=== PATIENT | female | born 1935 | race Caucasian/White ===

== ENCOUNTER 2017-10-21 12:55 | Inpatient (IN) | payer OTHER, MEDICAID, MEDICARE ==
[~2017-10-21] VITALS: Ht 162.6 cm; Wt 98.0 kg
[~2017-10-21 12:55] MED LIST: AMLO2.5T PO; ATEN-102 PO; BENA25TA5 PO; CALTCHW4 PO; HYDR-3133 PO; LOVA20TA PO; MEDR4PAK3 PO; OMEG100037 PO; VITA10002 PO
[2017-10-21 13:24] VITALS: BP 195/98; PULSE 86; RESP 18; O2SAT 97
[2017-10-21] MEDS ORDERED: CALTCHW5 PO (13:29)
[2017-10-21] MEDS ORDERED: ATEN50TA PO (13:29)
[2017-10-21] MEDS ORDERED: CYAN1TAB24 (13:29)
[2017-10-21] MEDS ORDERED: FISHCAP4 PO (13:29)
[2017-10-21] MEDS ORDERED: AMLO2.5T PO (13:29)
[2017-10-21] MEDS ORDERED: LOVA20TA PO (13:29)
[2017-10-21] MEDS ORDERED: SODIUM CHLORIDE 0.9% FLUSH 10 ML FLUSH IVF PRN ×2 (13:30)
--- NOTE | 2017-10-21 13:38 | PD ---
HPI Chief Complaint: Fall Time Seen by Provider: 13:17 Travel History International Travel<30 days: No Contact w/Intl Traveler<30days: No Traveled to known affect area: No History of Present Illness HPI 81-year-old female states she was getting out of bed from a nap when she got tripped up trying to get back in her scooter and fell. She states she lives at home with her sister. She states she mainly gets around in her scooter. She states she is now having pain to the back of her head and her left knee. She denies any other concurrent complaints but history is limited as patient is having difficulty secondary to pain she states. Pain is worse with movement. She denies other modifying factors. She presents by ambulance. [facility], LAT[facility] Past Medical History Arthritis: Yes High Cholesterol: Yes Diabetes: No Hypertension: Yes Tetanus Vaccination: > 5 Years Influenza Vaccination: Yes ?: Not Menopausal: Yes Past Surgical History Endocrine Surgery: Yes (partcial thyroid removed r/t cyst) Tonsillectomy: Yes Social History Alcohol Use: No Tobacco Use: No (quit in 1974) Substance Use: No Allergies-Medications (Allergen,Severity, Reaction): Coded Allergies: red dye (Unverified Allergy, Severe, Anaphylaxis, 06/20/17) Reported Meds & Prescriptions Reported Meds & Active Scripts Active Reported Caltrate 600+D Chew (Calcium Carbonate-Vitamin D Chew) 600-400 Mg-Unit Chew 1 Tab PO BID Fish Oil + D3 (Fish Oil-Cholecalciferol) 1,200-1,000 Mg-Unit Cap 1 Cap PO DAILY Lovastatin 20 Mg Tab 20 Mg PO HS B12 (Cyanocobalamin) 1,000 Mcg Tab Amlodipine (Amlodipine Besylate) 2.5 Mg Tab 2.5 Mg PO DAILY Atenolol 50 Mg Tab 50 Mg PO BID Review of Systems ROS Limitations: Poor Historian Physical Exam Narrative General: 81 y/o patient who appears uncomfortable Skin: warm and dry Eyes: pupils are equal ENT: no septal hematoma NECK: no pain with palpation in midline Cardiovascular: Regular rate and rhythm Respiratory: normal respiratory effort noted, clear to auscultation bilaterally Abdomen: soft, nontender, nondistended Back: No step-offs, midline spine nontender with logroll Extremities: Pain with palpation of left knee, no lacerations over, neurovascularly intact, no pain with palpation of other joints Neuro: awake, moves all extremities, clear speech Data Data Last Documented VS Vital Signs Date Time Temp Pulse Resp B/P (MAP) Pulse Ox O2 Delivery O2 Flow Rate FiO2 10/21/17 13:24 86 18 195/98 (130) 97 Room Air Orders Orders Complete Blood Count With Diff (10/21/17 13:23) Comprehensive Metabolic Panel (10/21/17 13:23) Prothrombin Time / Inr (Pt) (10/21/17 13:23) Act Partial Throm Time (Ptt) (10/21/17 13:23) Chest, Single Ap (10/21/17 13:23) Pelvis, Ap Only (Routine) (10/21/17 13:23) Iv Access Insert/Monitor (10/21/17 13:23) Oximetry (10/21/17 13:23) Ecg Monitoring (10/21/17 13:23) Sodium Chloride 0.9% Flush (Ns Flush) (10/21/17 13:30) Ct Brain W/O Iv Contrast(Rout) (10/21/17 13:23) Ct Cerv Spine W/O Contrast (10/21/17 13:23) Sodium Chloride 0.9% Flush (Ns Flush) (10/21/17 13:30) Knee, Complete (4vws) (10/21/17 ) Morphine Inj (Morphine Inj) (10/21/17 13:45) Atenolol (Tenormin) (10/21/17 15:30) Apply Cervical Collar (10/21/17 15:25) Consult Neurosurgery (10/21/17 ) (Hub Use Only)Inp Phy Cons/Ref (10/21/17 ) Amlodipine (Norvasc) (10/22/17 09:00) Atenolol (Tenormin) (10/21/17 21:00) Pravastatin (Pravachol) (10/21/17 21:00) Calcium-Vit D 250-125 Mg (Oscal-D 250-12 (10/21/17 21:00) Admit To Inpatient (10/21/17 ) Vital Signs (Adult) Q4H (10/21/17 16:05) Activity Oob With Assistance (10/21/17 16:05) Intake + Output KYLAH.QSHIFT (10/21/17 16:05) Sodium Chloride 0.9% Flush (Ns Flush) (10/21/17 16:15) Sodium Chloride 0.9% Flush (Ns Flush) (10/21/17 21:00) Acetaminophen (Tylenol) (10/21/17 16:15) Basic Metabolic Panel (Bmp) (10/22/17 06:00) Complete Blood Count With Diff (10/22/17 06:00) Pt Request For Service (10/21/17 16:05) Ot Request For Service (10/21/17 16:05) Case Management Consult (10/21/17 16:05) Enoxaparin Inj (Lovenox Inj) (10/21/17 17:00) Scd Bilateral/Knee High KYLAH.BID (10/21/17 16:05) Jamir Bilateral/Knee High KYLAH.QSHIFT (10/21/17 16:05) Naloxone Inj (Narcan Inj) (10/21/17 16:15) Docusate Sodium-Senna (Rita-Colace) (10/21/17 21:00) Magnesium Hydroxide Liq (Milk Of Magnesi (10/21/17 16:15) Sennosides (Senokot) (10/21/17 16:15) Bisacodyl Supp (Dulcolax Supp) (10/21/17 16:15) Lactulose Liq (Lactulose Liq) (10/21/17 16:15) Inpatient Certification (10/21/17 ) Pill Splitter (Pill Splitter) (10/21/17 16:15) Admit Order (Ed Use Only) (10/21/17 16:04) Diet Npo (10/21/17 Dinner) Labs Laboratory Tests Test 10/21/17 13:40 White Blood Count 10.6 TH/MM3 Red Blood Count 4.56 MIL/MM3 Hemoglobin 13.5 GM/DL Hematocrit 39.7 % Mean Corpuscular Volume 87.0 FL Mean Corpuscular Hemoglobin 29.5 PG Mean Corpuscular Hemoglobin Concent 33.9 % Red Cell Distribution Width 14.5 % Platelet Count 302 TH/MM3 Mean Platelet Volume 8.1 FL Neutrophils (%) (Auto) 82.5 % Lymphocytes (%) (Auto) 10.2 % Monocytes (%) (Auto) 5.8 % Eosinophils (%) (Auto) 1.0 % Basophils (%) (Auto) 0.5 % Neutrophils # (Auto) 8.7 TH/MM3 Lymphocytes # (Auto) 1.1 TH/MM3 Monocytes # (Auto) 0.6 TH/MM3 Eosinophils # (Auto) 0.1 TH/MM3 Basophils # (Auto) 0.1 TH/MM3 CBC Comment DIFF FINAL Differential Comment Prothrombin Time 10.1 SEC Prothromb Time International Ratio 1.0 RATIO Activated Partial Thromboplast Time 20.8 SEC Blood Urea Nitrogen 10 MG/DL Creatinine 0.76 MG/DL Random Glucose 114 MG/DL Total Protein 7.5 GM/DL Albumin 4.0 GM/DL Calcium Level 9.1 MG/DL Alkaline Phosphatase 126 U/L Aspartate Amino Transf (AST/SGOT) 28 U/L Alanine Aminotransferase (ALT/SGPT) 36 U/L Total Bilirubin 0.4 MG/DL Sodium Level 134 MEQ/L Potassium Level 3.9 MEQ/L Chloride Level 100 MEQ/L Carbon Dioxide Level 28.0 MEQ/L Anion Gap 6 MEQ/L Estimat Glomerular Filtration Rate 73 ML/MIN MDM Medical Decision Making Medical Screen Exam Complete: Yes Emergency Medical Condition: Yes Medical Record Reviewed: Yes (pmh confirmed) Interpretation(s) CBC & BMP Diagram 10/21/17 13:40 Total Protein 7.5, Albumin 4.0, Calcium Level 9.1, Alkaline Phosphatase 126 H, Aspartate Amino Transf (AST/SGOT) 28, Alanine Aminotransferase (ALT/SGPT) 36, Total Bilirubin 0.4 Last 24 hours Impressions Pelvis X-Ray 10/21/17 1323 Signed Impressions: Service Date/Time: Saturday, October 21, 2017 14:11 - CONCLUSION: 1. No acute fracture or dislocation. 2. 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 Enrique Torres MD Head CT 10/21/17 1323 Signed Impressions: Service Date/Time: Saturday, October 21, 2017 14:40 - CONCLUSION: 1. Senescent changes with moderate small vessel periventricular white matter ischemic demyelination. 2. No acute intracranial abnormality. Enrique Torres MD Chest X-Ray 10/21/17 1323 Signed Impressions: Service Date/Time: Saturday, October 21, 2017 14:15 - CONCLUSION: 1. Focal elevation of the medial right hemidiaphragm. 2. Otherwise, negative portable chest status post trauma. Enrique Torres MD Cervical Spine CT 10/21/17 1323 Signed Impressions: Service Date/Time: Saturday, October 21, 2017 14:40 - CONCLUSION: 1. Fracture of the left C2 pedicle with questionable extension along the anterolateral left C2 body to the base of the dens. Suspect the lucency extending to the base of the dens is related to old injury or represents a venous channel. This can be better evaluated with MRI examination if clinically indicated. 2. Multilevel degenerative spondylosis of the cervical spine most prominently at C3-4 and C5- 6 with multilevel facet arthropathy. Enrique Torres MD Knee X-Ray 10/21/17 0000 Signed Impressions: Service Date/Time: Saturday, October 21, 2017 14:18 - CONCLUSION: 1. No acute fracture or dislocation. 2. Mild tricompartmental degenerative osteoarthritis. Enrique Torres MD Differential Diagnosis Fracture, strain, sprain Narrative Course Will check blood work, trauma imaging and dose with morphine and reevaluate Trauma imaging shows fracture of left c2 pedicle with possible extension, patient's [facility] Amb[facility] collar was changed to a Tasia collar and will discuss with neurosurgery patient updated, son also now at bedside in addition to sister and they are to admit in the hospital for further care Physician Communication Physician Communication dr pablo will see patient dr jimenze agrees to admit Diagnosis Primary Impression: C2 cervical fracture Qualified Codes: S12.101A - Unspecified nondisplaced fracture of second cervical vertebra, initial encounter for closed fracture Additional Impression: Fall Qualified Codes: W19.XXXA - Unspecified fall, initial encounter Admitting Information Admitting Physician Requests: Admit Carlie Cruz MD Oct 21, 2017 13:38
[2017-10-21] MEDS ORDERED: MORPHINE SULFATE 4 MG/ML INJ IV PUSH ONE (13:45)
[2017-10-21 14:12] LABS: AUTOMATED NEUTROPHIL # 8.7 TH/MM3 (1.8-7.7); BASOPHIL # 0.1 TH/MM3 (0-0.2); BASOPHIL % 0.5 % (0.0-2.0); EOSINOPHIL # 0.1 TH/MM3 (0-0.4); HEMATOCRIT 39.7 % (35.0-46.0); HEMO FLAGS DIFF FINAL; LYMPH % 10.2 % (9.0-44.0); LYMPHOCYTE # 1.1 TH/MM3 (1.0-4.8); MEAN CORPUSCULAR HEMOGLOBIN 29.5 PG (27.0-34.0); MEAN CORPUSCULAR HGB CONC 33.9 % (32.0-36.0); MONO % 5.8 % (0.0-8.0); NEUT % 82.5 % (16.0-70.0); PLATELET COUNT 302 TH/MM3 (150-450); RED BLOOD COUNT 4.56 MIL/MM3 (4.00-5.30); RED CELL DISTRIBUTION WIDTH 14.5 % (11.6-17.2); WHITE BLOOD COUNT 10.6 TH/MM3 (4.0-11.0)
--- NOTE | 2017-10-21 14:24 | RADRPT ---
EXAM DATE/TIME: 10/21/2017 14:15 [facility] COMPARISON: No previous studies available for comparison. INDICATIONS : Trauma. Patient fell today. MEDICAL HISTORY : None. SURGICAL HISTORY : None. ENCOUNTER: Initial ACUITY: 1 day PAIN SCORE: 0/10 LOCATION: chest FINDINGS: Focal medial eventration of the right hemidiaphragm. No significant focal pleural or pelvic opacities . Cardiomediastinal contours are within normal limits. No significant pneumothorax. Osseous structure s are grossly intact. CONCLUSION: 1. Focal elevation of the medial right hemidiaphragm. 2. Otherwise, negative portable chest status post trauma. Enrique Torres MD on October 21, 2017 at 14:21 Board Certified Radiologist. This report was verified electronically.
--- NOTE | 2017-10-21 14:27 | RADRPT ---
EXAM DATE/TIME: 10/21/2017 14:11 [facility] COMPARISON: No previous studies available for comparison. INDICATIONS : Patient fell today and complains of pelvic pain. MEDICAL HISTORY : None. SURGICAL HISTORY : None. ENCOUNTER: Initial ACUITY: 1 day PAIN SCORE: 3/10 LOCATION: Pelvis FINDINGS: A single frontal view of the pelvis demonstrates no evidence of fracture. The bony pelvic ring is in tact. There is severe osteoarthritis of the left hip with [id number] articulation. There is moderat e to severe osteoarthritis of the right hip. Sacral arches are maintained. Soft tissues are grossly u nremarkable. CONCLUSION: 1. No acute fracture or dislocation. 2. 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 Enrique Torres MD on October 21, 2017 at 14:23 Board Certified Radiologist. This report was verified electronically.
[2017-10-21 14:29] LABS: APTT (PATIENT) 20.8 SEC (24.3-30.1); PROTHROMBIN TIME - PATIENT 10.1 SEC (9.8-11.6)
[2017-10-21 14:30] LABS: ALT (GPT) 36 U/L (10-53); ANION GAP 6 MEQ/L (5-15); AST (GOT) 28 U/L (15-37); BLOOD UREA NITROGEN 10 MG/DL (7-18); CHLORIDE 100 MEQ/L (98-107); GLOMERULAR FILTRATION RATE 73 ML/MIN (>89); POTASSIUM 3.9 MEQ/L (3.5-5.1); SODIUM (NA) 134 MEQ/L (136-145)
[2017-10-21 14:31] LABS: ALKALINE PHOSPHATASE 126 U/L (45-117); TOTAL BILIRUBIN ADULT 0.4 MG/DL (0.2-1.0)
--- NOTE | 2017-10-21 15:02 | RADRPT ---
EXAM DATE/TIME: 10/21/2017 14:18 [facility] COMPARISON: No previous studies available for comparison. INDICATIONS : Patient fell and complains of left knee pain. MEDICAL HISTORY : None. SURGICAL HISTORY : None. ENCOUNTER: Initial ACUITY: 1 day PAIN SCORE: 5/10 LOCATION: Left Knee FINDINGS: Four view examination of the left knee demonstrates no evidence of fracture or dislocation. Bony min eralization is normal. The articular surfaces are intact. Mild tricompartmental degenerative change. The suprapatellar soft tissues have a normal configuration. CONCLUSION: 1. No acute fracture or dislocation. 2. Mild tricompartmental degenerative osteoarthritis. Enrique Torres MD on October 21, 2017 at 14:59 Board Certified Radiologist. This report was verified electronically.
--- NOTE | 2017-10-21 15:04 | RADRPT ---
EXAM DATE/TIME: 10/21/2017 14:40 [facility] COMPARISON: No previous studies available for comparison. INDICATIONS : Trauma, fall today. RADIATION DOSE: 56.35 CTDIvol (mGy) MEDICAL HISTORY : Hypertension. SURGICAL HISTORY : Thyroidectomy. ENCOUNTER: Initial ACUITY: 1 day PAIN SCALE: 5/10 LOCATION: Bilateral head TECHNIQUE: Multiple contiguous axial images were obtained of the head. Using automated exposure control and adj ustment of the mA and/or kV according to patient size, radiation dose was kept as low as reasonably a chievable to obtain optimal diagnostic quality images. DICOM format image data is available electro nically for review and comparison. FINDINGS: CEREBRUM: Moderate diffuse cerebral volume loss. Moderate periventricular white matter hypodensities. The ventr icles are normal for degree of atrophy. No evidence of midline shift, mass lesion, hemorrhage or acu te infarction. No extra-axial fluid collections are seen. POSTERIOR FOSSA: The cerebellum and brainstem are intact. The 4th ventricle is midline. The cerebellopontine angle i s unremarkable. EXTRACRANIAL: The visualized portion of the orbits is intact. SKULL: The calvaria is intact. No evidence of skull fracture. CONCLUSION: 1. Senescent changes with moderate small vessel periventricular white matter ischemic demyelination. 2. No acute intracranial abnormality. Enrique Torres MD on October 21, 2017 at 15:00 Board Certified Radiologist. This report was verified electronically.
--- NOTE | 2017-10-21 15:23 | RADRPT ---
EXAM DATE/TIME: 10/21/2017 14:40 [facility] COMPARISON: No previous studies available for comparison. INDICATIONS : Trauma, fall today. RADIATION DOSE: 41.1 CTDIvol (mGy) ; Patient body habitus MEDICAL HISTORY : Hypertension. SURGICAL HISTORY : Thyroidectomy. ENCOUNTER: Initial ACUITY: 1 day PAIN SCALE: 6/10 LOCATION: Bilateral neck TECHNIQUE: Volumetric scanning of the cervical spine was performed. Multiplanar reconstructions in the sagittal, coronal and oblique axial planes were performed. Using automated exposure control and adjustment o f the mA and/or kV according to patient size, radiation dose was kept as low as reasonably achievable to obtain optimal diagnostic quality images. DICOM format image data is available electronically f or review and comparison. FINDINGS: There is a lucency extending from the base of the dens posteriorly to the left C2 pedicle. Portions o f the lucency near the base of the dens appear corticated and therefore may reflect an old injury or venous channel. Vertebral body heights are otherwise maintained. There is exaggerated cervical lordos is. Sagittal alignment is maintained. There is a normal C1-2 relationship. Facets are normally aligne d. There is no significant prevertebral soft tissue hematoma. Multilevel degenerative spondylosis wit h disc space narrowing and posterior disc osteophyte complex most prominently at C3-4 and C5-6. Multi level facet arthropathy. No significant cervical adenopathy or gross mass. The thyroid appears unrema rkable. Visualized lung apices are clear without pneumothorax. CONCLUSION: 1. Fracture of the left C2 pedicle with questionable extension along the anterolateral left C2 body t o the base of the dens. Suspect the lucency extending to the base of the dens is related to old injur y or represents a venous channel. This can be better evaluated with MRI examination if clinically ind icated. 2. Multilevel degenerative spondylosis of the cervical spine most prominently at C3-4 and C5-6 with m ultilevel facet arthropathy. Enrique Torres MD on October 21, 2017 at 15:11 Board Certified Radiologist. This report was verified electronically.
[2017-10-21] MEDS ORDERED: ATENOLOL 50 MG TAB PO ONE (15:30)
[2017-10-21] MEDS ORDERED: PILL SPLITTER OTHER PRN (16:15)
[2017-10-21] MEDS ORDERED: SODIUM CHLORIDE 0.9% FLUSH 10 ML FLUSH IV FLUSH PRN (16:15)
[2017-10-21] MEDS ORDERED: MAGNESIUM HYDROXIDE SUSP 30 ML CUP PO PRN (16:15)
[2017-10-21] MEDS ORDERED: LACTULOSE SYRUP 20 GM/30 ML CUP PO PRN (16:15)
[2017-10-21] MEDS ORDERED: SENNOSIDES 8.6 MG TAB PO PRN (16:15)
[2017-10-21] MEDS ORDERED: NALOXONE HCL 0.4 MG/ML AMP IV PUSH PRN (16:15)
[2017-10-21] MEDS ORDERED: BISACODYL 10 MG SUPP RECTAL PRN (16:15)
--- NOTE | 2017-10-21 16:19 | HHI.HP ---
HPI Service [facility] Hospitalists Primary Care Physician Kush Myers M.D. Admission Diagnosis fracture of left C2 pedicle, fall Diagnoses: Chief Complaint: Neck pain s/p fall Travel History International Travel<30 Days: No Contact w/Intl Traveler <30 Da: No Traveled to Known Affected Are: No History of Present Illness Written by Bessie Palma, acting as scribe for Dr. Tate on 10/21/17 at 16: 12. This is a 81yo female with a PMHX significant for HTN, HLD and OA with chronic knee pain who presents to [facility] ED with complaints of neck pain s/p fall. Patient states her left leg got caught up in her covers as she was getting out of bed and she lost her balance and fell hitting her head on the bedside toilet. Patient uses a scooter for mobilization primarily and has done so for the past 3 to 4 years. She has a history of neck injury in the 1970s and also reports an involuntary head shake for many years. She is complaining of left knee pain. In the ED, CT of the cervical spine was obtained revealing fracture of the left C2 pedicle with questionable extension along the anterolateral left C2 body to the base of the dens. Neurosurgery was contacted by the ED physician who recommended admission and will see the patient in consultation. Review of Systems Except as stated in HPI: all other systems reviewed are Neg Past Family Social History Past Medical History Hypertension Dyslipidemia Osteoarthritis Chronic bilateral knee pain Past Surgical History No previous surgeries in the past Reported Medications Caltrate 600+D Chew (Calcium Carbonate-Vitamin D Chew) 600-400 Mg-Unit Chew 1 Tab PO BID Fish Oil + D3 (Fish Oil-Cholecalciferol) 1,200-1,000 Mg-Unit Cap 1 Cap PO DAILY Lovastatin 20 Mg Tab 20 Mg PO HS B12 (Cyanocobalamin) 1,000 Mcg Tab Amlodipine (Amlodipine Besylate) 2.5 Mg Tab 2.5 Mg PO DAILY Atenolol 50 Mg Tab 50 Mg PO BID Allergies: Coded Allergies: red dye (Unverified Allergy, Severe, Anaphylaxis, 06/20/17) Active Ordered Medications Current Medications Medications (Trade) Dose Ordered Sig/Heriberto Route Start Time Stop Time Status Last Admin (Norvasc) 2.5 mg DAILY PO 10/22/17 09:00 (Tenormin) 50 mg BID PO 10/21/17 21:00 (Pravachol) 20 mg HS PO 10/21/17 21:00 (Oscal-D 250-125) 250 mg BID PO 10/21/17 21:00 (NS Flush) 2 ml UNSCH PRN IV FLUSH 10/21/17 16:15 (NS Flush) 2 ml BID IV FLUSH 10/21/17 21:00 (Tylenol) 650 mg Q4H PRN PO 10/21/17 16:15 (Lovenox Inj) 40 mg Q24H SQ 10/21/17 17:00 (Narcan Inj) 0.4 mg UNSCH PRN IV PUSH 10/21/17 16:15 (Rita-Colace) 1 tab BID PO 10/21/17 21:00 (Milk Of Magnesia Liq) 30 ml Q12H PRN PO 10/21/17 16:15 (Senokot) 17.2 mg Q12H PRN PO 10/21/17 16:15 (Dulcolax Supp) 10 mg DAILY PRN RECTAL 10/21/17 16:15 (Lactulose Liq) 30 ml DAILY PRN PO 10/21/17 16:15 (Pill Splitter) 1 ea UNSCH PRN OTHER 10/21/17 16:15 Family History HTN, DM Social History Patient denies any tobacco use, EtOH use or illicit drug use. Physical Exam Vital Signs Vital Signs Date Time Temp Pulse Resp B/P (MAP) Pulse Ox O2 Delivery O2 Flow Rate FiO2 10/21/17 13:24 86 18 195/98 (130) 97 Room Air 10/21/17 13:19 84 18 97 Physical Exam GENERAL: This is a well-nourished, well-developed patient, in no apparent distress. Awake and alert. Mild involuntary headshake noted. SKIN: No rashes, ecchymoses or lesions. Cool and dry. HEAD: Atraumatic. Normocephalic. No temporal or scalp tenderness. EYES: Pupils equal round and reactive. Extraocular motions intact. No scleral icterus. No injection or drainage. ENT: Nose without bleeding or purulent drainage. Throat without erythema, tonsillar hypertrophy or exudate. Uvula midline. Airway patent. NECK: Trachea midline. No JVD or lymphadenopathy. Supple, nontender, no meningeal signs. CARDIOVASCULAR: Regular rate and rhythm without murmurs, gallops, or rubs. RESPIRATORY: Clear to auscultation. Breath sounds equal bilaterally. No wheezes , rales, or rhonchi. GASTROINTESTINAL: Abdomen soft, non-tender, nondistended. No hepato-splenomegaly , or palpable masses. No guarding. MUSCULOSKELETAL: Extremities without clubbing, cyanosis, or edema. (+) tenderness left knee with decreased ROM. No calf tenderness. NEUROLOGICAL: Awake and alert. Able to move all extremities but with weakness noted in bilateral lower extremities left greater than right. Normal speech. Laboratory Laboratory Tests Test 10/21/17 13:40 White Blood Count 10.6 Red Blood Count 4.56 Hemoglobin 13.5 Hematocrit 39.7 Mean Corpuscular Volume 87.0 Mean Corpuscular Hemoglobin 29.5 Mean Corpuscular Hemoglobin Concent 33.9 Red Cell Distribution Width 14.5 Platelet Count 302 Mean Platelet Volume 8.1 Neutrophils (%) (Auto) 82.5 Lymphocytes (%) (Auto) 10.2 Monocytes (%) (Auto) 5.8 Eosinophils (%) (Auto) 1.0 Basophils (%) (Auto) 0.5 Neutrophils # (Auto) 8.7 Lymphocytes # (Auto) 1.1 Monocytes # (Auto) 0.6 Eosinophils # (Auto) 0.1 Basophils # (Auto) 0.1 CBC Comment DIFF FINAL Differential Comment Prothrombin Time 10.1 Prothromb Time International Ratio 1.0 Activated Partial Thromboplast Time 20.8 Blood Urea Nitrogen 10 Creatinine 0.76 Random Glucose 114 Total Protein 7.5 Albumin 4.0 Calcium Level 9.1 Alkaline Phosphatase 126 Aspartate Amino Transf (AST/SGOT) 28 Alanine Aminotransferase (ALT/SGPT) 36 Total Bilirubin 0.4 Sodium Level 134 Potassium Level 3.9 Chloride Level 100 Carbon Dioxide Level 28.0 Anion Gap 6 Estimat Glomerular Filtration Rate 73 Result Diagram: 10/21/17 1340 10/21/17 1340 Imaging Current Medications Medications (Trade) Dose Ordered Sig/Heriberto Route Start Time Stop Time Status Last Admin (Norvasc) 2.5 mg DAILY PO 12/17/17 09:00 (Tenormin) 50 mg BID PO 10/21/17 21:00 (Pravachol) 20 mg HS PO 10/21/17 21:00 (Oscal-D 250-125) 250 mg BID PO 10/21/17 21:00 (NS Flush) 2 ml UNSCH PRN IV FLUSH 10/21/17 16:15 (NS Flush) 2 ml BID IV FLUSH 10/21/17 21:00 (Tylenol) 650 mg Q4H PRN PO 10/21/17 16:15 (Lovenox Inj) 40 mg Q24H SQ 10/21/17 17:00 (Narcan Inj) 0.4 mg UNSCH PRN IV PUSH 10/21/17 16:15 (Rita-Colace) 1 tab BID PO 10/21/17 21:00 (Milk Of Magnesia Liq) 30 ml Q12H PRN PO 10/21/17 16:15 (Senokot) 17.2 mg Q12H PRN PO 10/21/17 16:15 (Dulcolax Supp) 10 mg DAILY PRN RECTAL 10/21/17 16:15 (Lactulose Liq) 30 ml DAILY PRN PO 10/21/17 16:15 (Pill Splitter) 1 ea UNSCH PRN OTHER 10/21/17 16:15 Caprini VTE Risk Assessment Caprini VTE Risk Assessment: Mod/High Risk (score >= 2) Caprini Risk Assessment Model Point Value = 1 Point Value = 2 Point Value = 3 Point Value = 5 Age 41-60 Minor surgery BMI > 25 kg/m2 Swollen legs Varicose veins or History of unexplained or recurrent spontaneous Oral contraceptives or hormone replacement Sepsis (< 1 month) Serious lung disease, including pneumonia (< 1 month) Abnormal pulmonary function Acute myocardial infarction Congestive heart failure (< 1 month) History of inflammatory bowel disease Medical patient at bed rest Age 61-74 Arthroscopic surgery Major open surgery (> 45 min) Laparoscopic surgery (> 45 min) Malignancy Confined to bed (> 72 hours) Immobilizing plaster cast Central venous access Age >= 75 History of VTE Family history of VTE Factor V Leiden Prothrombin 25018I Lupus anticoagulant Anticardiolipin antibodies Elevated serum homocysteine Heparin-induced thrombocytopenia Other congenital or acquired thrombophilia Stroke (< 1 month) Elective arthroplasty Hip, pelvis, or leg fracture Acute spinal cord injury (< 1 month) Prophylaxis Regimen Total Risk Factor Score Risk Level Prophylaxis Regimen 0-1 Low Early ambulation 2 Moderate Order ONE of the following: *Sequential Compression Device (SCD) *Heparin 5000 units SQ BID 3-4 Higher Order ONE of the following medications: *Heparin 5000 units SQ TID *Enoxaparin/Lovenox 40 mg SQ daily (WT < 150 kg, CrCl > 30 mL/min) *Enoxaparin/Lovenox 30 mg SQ daily (WT < 150 kg, CrCl > 10-29 mL/min) *Enoxaparin/Lovenox 30 mg SQ BID (WT < 150 kg, CrCl > 30 mL/min) AND/OR *Sequential Compression Device (SCD) 5 or more Highest Order ONE of the following medications: *Heparin 5000 units SQ TID (Preferred with Epidurals) *Enoxaparin/Lovenox 40 mg SQ daily (WT < 150 kg, CrCl > 30 mL/min) *Enoxaparin/Lovenox 30 mg SQ daily (WT < 150 kg, CrCl > 10-29 mL/min) *Enoxaparin/Lovenox 30 mg SQ BID (WT < 150 kg, CrCl > 30 mL/min) AND *Sequential Compression Device (SCD) Assessment and Plan Assessment and Plan 81yo female with a PMHX significant for HTN, HLD and OA with chronic knee pain who presents to [facility] ED with complaints of neck pain s/p fall. C2 pedicle fracture s/p fall Closed head injury - CT head without any acute intracranial abnormality, images reviewed by la - CT cervical spine revealed fracture of the left C2 pedicle with questionable extension along the anterolateral left C2 body to the base of the dens as well as diffuse degenerative changes, images reviewed by la - ED physician discussed with Neurosurgery who has agreed to see patient in consultation. Discussed with Dr. Erickson of . Appreciate recommendations. Change to [place] J Collar. Obtain MRI cervical spine without contrast. - pain management with bowel regimen - fall risk - PT/OT eval/tx Hypertension - uncontrolled - resume home medications of Atenolol 50mg BID and Norvasc 2.5mg daily - Vasotec 1.25mg q6hr prn or Hydralazine 10mg q6h prn with SBP>160/95 - continue to monitor BP and adjust treatment accordingly Osteoarthritis Left knee pain - Xray left knee mild tricompartmental DJD left knee, no acute fracture, images reviewed by me - as above, pain management, PT eval/tx Dyslipidemia - resume patients home statin therapy DVT prophylaxis - Lovenox 40mg sq - bilateral SCD/LINH heladioe This note was transcribed by NASH Jones. I, Dr. Liliana Tate personally performed the history, physical exam, and medical decision making; and confirmed the accuracy of the information in the transcribed note. Authenticated by Dr. Liliana Tate on 10/21/17 at 16:12. Discussed Condition With ED physician, patient, family. Dr. Erickson of neurosurgery Physician Certification 2 Midnight Certification Type: Admission for Inpatient Services Order for Inpatient Services The services are ordered in accordance with Medicare regulations or non- Medicare payer requirements, as applicable. In the case of services not specified as inpatient-only, they are appropriately provided as inpatient services in accordance with the 2-midnight benchmark. Estimated LOS (days): 3 3 days is the estimated time the patient will need to remain in the hospital, assuming treatment plan goals are met and no additional complications. Post-Hospital Plan: Not yet determined Bessie Palma Oct 21, 2017 16:19 Liliana Tate MD Oct 21, 2017 17:44
[2017-10-21] MEDS ORDERED: ENALAPRILAT 1.25 MG/ML VIAL IV PUSH PRN (16:30)
[2017-10-21] MEDS ORDERED: hydrALAZINE HCL 10 MG TAB PO PRN (16:30)
[2017-10-21] MEDS: ENOXAPARIN SODIUM 40 MG/0.4 ML SYRINGE SQ SCH (17:00)
--- NOTE | 2017-10-21 17:01 | HHI.NSPN ---
fall with neck pain History Interval History 81y/o female with history of fall today with resultant neck pain System Review Comments no change Exam Results Vital Signs Date Time Temp Pulse Resp B/P (MAP) Pulse Ox O2 Delivery O2 Flow Rate FiO2 10/21/17 13:24 86 18 195/98 (130) 97 Room Air Physical Examination Alert and awake Follows commands Oriented x 3 In [place] collar Moves all extremities weaker in the legs DTRs 1+ except ankles Lab, Micro, Other Results CT of C spine Possible fracture of C2 involving dens and pedicle Medical Decision Making Impression and Plan Imp: Fracture of C2, not entirely clear Rec: [facility] collar MRI of C spine PT/OT eval Total Minutes: 30 Garry Erickson MD Oct 21, 2017 17:01
[2017-10-21 17:19] VITALS: BP 197/93; PULSE 78; RESP 18; O2SAT 96
--- NOTE | 2017-10-21 18:43 | RADRPT ---
EXAM DATE/TIME: 10/21/2017 18:04 [place] COMPARISON: No previous studies available for comparison. INDICATIONS : Fall, abnormal CT. MEDICAL HISTORY : Hypertension. SURGICAL HISTORY : Benign throat tumor removal. ENCOUNTER: Initial ACUITY: 1 day PAIN SCORE: 5/10 LOCATION: [facility] TECHNIQUE: Multiplanar, multisequence MRI examination of the cervical spine was performed. FINDINGS: MRI confirms a relatively nondisplaced fracture through the left C2 pedicle. There is also a probable nondisplaced fracture through the base of the dens. There is no retropulsion. No cord compression or cord edema. There is moderate degenerative disc disease with effacement of anterior thecal sac noted throughout the cervical spine. No other fractures. CONCLUSION: 1. Relatively nondisplaced fractures of left C2 pedicle and through the base of the dens. No retropul bette. No cord compression or cord edema. Saleem Mcadams MD on October 21, 2017 at 18:37 Board Certified Radiologist. This report was verified electronically.
--- NOTE | 2017-10-21 18:54 | MB ---
cc: GUZMAN BARR DATE OF CONSULTATION 10/21/17 CHIEF COMPLAINT Fall with resultant neck pain. HISTORY OF PRESENT ILLNESS This is a 81 year old female patient who reports she was getting out of bed when she tripped and fell striking her head. The patient reports that she developed neck pain. She was brought to the emergency room for evaluation, underwent CT scan of the neck which was abnormal and, because of this, neurosurgery consult was placed. The patient reports that she usually uses a scooter to get around. She has not been able to walk independently for the past 3-4 years. She denies any type of injury to any other part of her head or body. She denies any loss of consciousness. PAST MEDICAL HISTORY 1. High cholesterol 2. Hypertension 3. Arthritis PAST SURGICAL HISTORY Partial removal of a thyroid cyst SOCIAL HISTORY Unremarkable. No alcohol use, no tobacco use. No substance abuse. ALLERGIES RED DYE MEDICATIONS 1. Caltrate 600 2. Lovastatin 3. Amlodipine 4. Atenolol 5. Fish oil. REVIEW OF SYSTEMS Unremarkable except for that pertaining to above history. PHYSICAL EXAMINATION VITAL SIGNS: Blood pressure 195/98, respirations 18, pulse 86, pulse oximetry 97 on room air. GENERAL: A 81 year old female patient in mild distress. She is in a [place] collar. HEENT: Unremarkable. She remains in a collar. CHEST: Symmetric. LUNGS: Clear ABDOMEN: Soft and nontender EXTREMITIES: Clear. NEUROLOGIC: Alert and awake. She follows commands well. She is oriented times three. She has a clear speech. She is right handed. Cranial nerves II-XII are intact. Motor exam is 5+/5 although she is not able to move the legs as well. Sensory exam is intact to touch. Deep tendon reflexes are 1+ at all sites except the ankles which are absent. She has silent Babinski bilaterally. LABORATORY DATA Reviewed. She has an H&H of 13.5 and 39.7. Sodium 134, potassium 3.9, chloride 100, CO2 28. BUN 10, creatinine 0.76, glucose 114. IMAGING STUDIES CT of the cervical spine shows what appears to be a possible fracture of the pedicle if C2 with some extension along the base of the dens. There is no misalignment. X-ray of the chest shows some focal elevation of the medial right hemidiaphragm, otherwise, is unremarkable. Head CT shows no acute intracranial abnormality. IMPRESSION Possible C2 fracture although not entirely clear as some of these changes may be old. PLAN The patient is being admitted to the medicine service for further evaluation with physical therapy and OT. She should have an MRI of the cervical spine to further evaluate the area and she can be placed in a [place] J collar in which she should remain at the present time. MD AMADO Peters/ /5:02 PM /6:23 PM MTDTray
[2017-10-21 20:10] VITALS: BP 192/85; PULSE 72; RESP 17; TEMP 97.5; O2SAT 95
[2017-10-21] MEDS: CALCIUM/VITAMIN D 250 MG/125 U TAB PO SCH (20:21)
[2017-10-21] MEDS: PRAVASTATIN SOD 20 MG TAB PO SCH (20:21)
[2017-10-21] MEDS: ATENOLOL 50 MG TAB PO SCH (20:21)
[2017-10-21] MEDS: DOCUSATE SODIUM 50 MG/SENNA 8.6 MG TAB PO SCH (20:21)
[2017-10-21] MEDS: ACETAMINOPHEN 325 MG TAB PO PRN (20:28)
[2017-10-21] MEDS: SODIUM CHLORIDE 0.9% FLUSH 10 ML FLUSH IV FLUSH SCH (20:30)
[2017-10-21] MEDS ORDERED: MORPHINE SULFATE 2 MG/ML INJ IV PUSH PRN (20:45)
[2017-10-21 23:51] VITALS: BP 187/75; PULSE 67; RESP 18; TEMP 97.3; O2SAT 97
[2017-10-22 04:10] VITALS: BP 169/84; PULSE 71; RESP 18; TEMP 96.8; O2SAT 96
[2017-10-22] MEDS: ACETAMINOPHEN 325 MG TAB PO PRN ×3 (04:41→16:08)
[2017-10-22 06:56] LABS: AUTOMATED NEUTROPHIL # 6.4 TH/MM3 (1.8-7.7); BASOPHIL # 0.1 TH/MM3 (0-0.2); BASOPHIL % 0.7 % (0.0-2.0); EOSINOPHIL # 0.1 TH/MM3 (0-0.4); EOSINOPHIL % 1.2 % (0.0-4.0); HEMATOCRIT 36.2 % (35.0-46.0); HEMO FLAGS DIFF FINAL; LYMPH % 15.9 % (9.0-44.0); LYMPHOCYTE # 1.4 TH/MM3 (1.0-4.8); MEAN CELL VOLUME 87.4 FL (80.0-100.0); MEAN CORPUSCULAR HEMOGLOBIN 30.4 PG (27.0-34.0); MEAN CORPUSCULAR HGB CONC 34.8 % (32.0-36.0); MONO % 7.3 % (0.0-8.0); NEUT % 74.9 % (16.0-70.0); PLATELET COUNT 263 TH/MM3 (150-450); RED BLOOD COUNT 4.14 MIL/MM3 (4.00-5.30); RED CELL DISTRIBUTION WIDTH 14.8 % (11.6-17.2); WHITE BLOOD COUNT 8.6 TH/MM3 (4.0-11.0)
[2017-10-22 07:03] LABS: BICARBONATE 28.5 MEQ/L (21.0-32.0); POTASSIUM 3.8 MEQ/L (3.5-5.1)
[2017-10-22 07:28] VITALS: BP 188/77; PULSE 70; RESP 19; TEMP 97.1; O2SAT 94
[2017-10-22] MEDS ORDERED: NON-FORMULARY DRUG (Fish Oil-Cholecalciferol (Fish Oil + D3) 1 CAP) PO SCH (09:00)
[2017-10-22] MEDS ORDERED: amLODIPine BESYLATE 5 MG TAB PO SCH (09:00)
[2017-10-22] MEDS: CALCIUM/VITAMIN D 250 MG/125 U TAB PO SCH ×2 (09:55→21:30)
[2017-10-22] MEDS: ATENOLOL 50 MG TAB PO SCH ×2 (09:55→21:30)
[2017-10-22] MEDS: DOCUSATE SODIUM 50 MG/SENNA 8.6 MG TAB PO SCH ×2 (09:56→21:30)
[2017-10-22] MEDS: SODIUM CHLORIDE 0.9% FLUSH 10 ML FLUSH IV FLUSH SCH ×2 (10:01→21:32)
[2017-10-22 11:33] VITALS: BP 197/85; PULSE 67; RESP 19; TEMP 97.5; O2SAT 97
--- NOTE | 2017-10-22 13:40 | HHI.PR ---
Subjective Remarks seen with daughter and sister at bedside very interactive and feisty no complains of tingling or numbness of the arms, no weakness mild neck discomfort slight head pain baseline gets around with a scooter and uses a walker for short distance Objective Vitals Vital Signs Date Time Temp Pulse Resp B/P (MAP) Pulse Ox O2 Delivery O2 Flow Rate FiO2 10/22/17 11:33 97.5 67 19 197/85 (122) 97 10/22/17 07:28 97.1 70 19 188/77 (114) 94 10/22/17 04:10 96.8 71 18 169/84 (112) 96 10/21/17 23:51 97.3 67 18 187/75 (112) 97 10/21/17 20:10 97.5 72 17 192/85 (120) 95 10/21/17 17:19 78 18 197/93 (127) 96 Room Air I/O 10/21/17 10/21/17 10/21/17 10/22/17 10/22/17 10/22/17 07:00 15:00 23:00 07:00 15:00 23:00 Intake Total 0 ml 240 ml Balance 0 ml 240 ml Intake Oral 0 ml 240 ml # Voids 1 4 # Bowel Movements 0 0 Result Diagram: 10/22/17 0617 10/22/17 0614 Imaging Last Impressions Pelvis X-Ray 10/21/171322 Signed Impressions: Service Date/Time: Saturday, October 21, 2017 14:11 - CONCLUSION: 1. No acute fracture or dislocation. 2. 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 Enrique Torres MD Head CT 10/21/17 1323 Signed Impressions: Service Date/Time: Saturday, October 21, 2017 14:40 - CONCLUSION: 1. Senescent changes with moderate small vessel periventricular white matter ischemic demyelination. 2. No acute intracranial abnormality. Enrique Torres MD Chest X-Ray 10/21/17 132 Signed Impressions: Service Date/Time: Saturday, October 21, 2017 14:15 - CONCLUSION: 1. Focal elevation of the medial right hemidiaphragm. 2. Otherwise, negative portable chest status post trauma. Enrique Torres MD Cervical Spine CT 10/21/17 1323 Signed Impressions: Service Date/Time: Saturday, October 21, 2017 14:40 - CONCLUSION: 1. Fracture of the left C2 pedicle with questionable extension along the anterolateral left C2 body to the base of the dens. Suspect the lucency extending to the base of the dens is related to old injury or represents a venous channel. This can be better evaluated with MRI examination if clinically indicated. 2. Multilevel degenerative spondylosis of the cervical spine most prominently at C3-4 and C5- 6 with multilevel facet arthropathy. Enrique Torres MD Knee X-Ray 10/21/17 0000 Signed Impressions: Service Date/Time: Saturday, October 21, 2017 14:18 - CONCLUSION: 1. No acute fracture or dislocation. 2. Mild tricompartmental degenerative osteoarthritis. Enrique Torres MD Cervical Spine MRI 10/21/17 0000 Signed Impressions: Service Date/Time: Saturday, October 21, 2017 18:04 - CONCLUSION: 1. Relatively nondisplaced fractures of left C2 pedicle and through the base of the dens. No retropulsion. No cord compression or cord edema. Saleem Mcadams MD Objective Remarks awake and alert, no acute distress anicteric, pupils reactive neck- collar in place lungs clear regular rhythm abdomen- soft, nontender extremities no edema, no calf swelling , good hand pediatric associate LE- 5/5 A/P Assessment and Plan 81yo female with a PMHX significant for HTN, HLD and OA with chronic knee pain who presents to [facility] ED with complaints of neck pain s/p fall. C2 pedicle fracture s/p fall Closed head injury - neuro stable - CT head without any acute intracranial abnormality - CT cervical spine revealed fracture of the left C2 pedicle with questionable extension along the anterolateral left C2 body to the base of the dens as well as diffuse degenerative changes, images reviewed by me Mehdi Bedolla. MRI cervical spine- confirms fracture, no swelling - pain management with bowel regimen - fall risk- baseline uses a walker and scooter for getting around - PT/OT daily Hypertension- - Atenolol 50mg BID and Norvasc 2.5mg daily- increase to 5 mg daily - Vasotec 1.25mg q6hr prn or Hydralazine 10mg q6h prn with SBP>160/95 - continue to monitor BP and adjust treatment accordingly Osteoarthritis Left knee pain- no complains today, full range of motion - Xray left knee mild tricompartmental DJD left knee, no acute fracture, - as above, pain management, PT eval/tx Dyslipidemia statin therapy DVT prophylaxis - Lovenox 40mg sq - bilateral SCD/LINH heladioe seen by PT- recommends rehab patient and daughter prefers to go home with home PT- will consult CM + arrange for any DME that she may need Syed Yeung MD Oct 22, 2017 13:40
[2017-10-22 15:29] VITALS: BP 168/70; PULSE 67; RESP 19; TEMP 96.7; O2SAT 97
--- NOTE | 2017-10-22 15:57 | HHI.NSPN ---
History Chief Complaint: fall Interval History 81y/o female with history of fall today with resultant neck pain No new complaints today. Wants to go home System Review Comments no change Exam Results Vital Signs Date Time Temp Pulse Resp B/P (MAP) Pulse Ox O2 Delivery O2 Flow Rate FiO2 10/22/17 15:29 96.7 67 19 168/70 (102) 97 10/21/17 17:19 Room Air Intake and Output 10/22/17 10/22/17 10/23/17 08:00 16:00 00:00 Intake Total 240 ml 950 ml Balance 240 ml 950 ml Physical Examination Alert and awake Follows commands Oriented x 3 In [place] J collar Moves all extremities Difficulty transferring Lab, Micro, Other Results MRI of Cspine reviewed Fx of dens and [id number]. Appears stable Medical Decision Making Impression and Plan Imp: Fx of dens and C2 pedicle. Findings and status discussed with pt and family Rec:Continue [place] J collar Will need Rehab eval PT/OT eval Total Minutes: 20 Garry Erickson MD Oct 22, 2017 15:57
[2017-10-22] MEDS: ENOXAPARIN SODIUM 40 MG/0.4 ML SYRINGE SQ SCH (16:12)
[2017-10-22 19:25] VITALS: BP_SYST 150; BP_SYST 151; BP_DIAS 64; BP_DIAS 67; PULSE 63; PULSE 76; RESP 18; TEMP 97.5; TEMP 98.5; O2SAT 95; O2SAT 96
[2017-10-22] MEDS: PRAVASTATIN SOD 20 MG TAB PO SCH (21:30)
[2017-10-22 23:00] VITALS: BP 153/67; PULSE 70; RESP 18; TEMP 98.4; O2SAT 95
[2017-10-23 03:59] VITALS: BP 186/82; PULSE 69; RESP 17; TEMP 97; O2SAT 96
[2017-10-23 08:00] VITALS: BP 178/86; PULSE 76; RESP 22; TEMP 96.9; O2SAT 95
[2017-10-23] MEDS: DOCUSATE SODIUM 50 MG/SENNA 8.6 MG TAB PO SCH ×2 (09:12→20:54)
[2017-10-23] MEDS: amLODIPine BESYLATE 5 MG TAB PO SCH (09:14)
[2017-10-23] MEDS: CALCIUM/VITAMIN D 250 MG/125 U TAB PO SCH ×2 (09:14→20:52)
[2017-10-23] MEDS: ATENOLOL 50 MG TAB PO SCH ×2 (09:14→20:53)
[2017-10-23] MEDS: SODIUM CHLORIDE 0.9% FLUSH 10 ML FLUSH IV FLUSH SCH ×2 (09:15→20:53)
[2017-10-23] MEDS ORDERED: PNEUMOCOCCAL POLYVALENT INJ 25 MCG/0.5 ML SYR IM ONE (10:00)
[2017-10-23 12:00] VITALS: BP 170/77; PULSE 71; RESP 20; TEMP 98.1; O2SAT 96
--- NOTE | 2017-10-23 13:57 | HHI.PR ---
Subjective Remarks patient awake and alert, very interactive denies any neck pain or any myelopathy Objective Vitals Vital Signs Date Time Temp Pulse Resp B/P (MAP) Pulse Ox O2 Delivery O2 Flow Rate FiO2 10/23/17 12:00 98.1 71 20 170/77 (108) 96 10/23/17 08:00 96.9 76 22 178/86 (116) 95 10/23/17 03:59 97.0 69 17 186/82 (116) 96 10/22/17 23:00 98.4 70 18 153/67 (95) 95 10/22/17 19:25 97.5 76 18 151/67 (95) 96 10/22/17 15:29 96.7 67 19 168/70 (102) 97 I/O 10/22/17 10/22/17 10/22/17 10/23/17 10/23/17 10/23/17 07:00 15:00 23:00 07:00 15:00 23:00 Intake Total 240 ml 950 ml 360 ml 360 ml Balance 240 ml 950 ml 360 ml 360 ml Intake Oral 240 ml 950 ml 360 ml 360 ml # Voids 4 5 4 4 # Bowel Movements 0 1 1 Result Diagram: 10/22/17 0617 10/22/17 0614 Imaging Last Impressions Pelvis X-Ray 10/21/17 1323 Signed Impressions: Service Date/Time: Saturday, October 21, 2017 14:11 - CONCLUSION: 1. No acute fracture or dislocation. 2. 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 Enrique Torres MD Head CT 10/21/17 1323 Signed Impressions: Service Date/Time: Saturday, October 21, 2017 14:40 - CONCLUSION: 1. Senescent changes with moderate small vessel periventricular white matter ischemic demyelination. 2. No acute intracranial abnormality. Enrique Torres MD Chest X-Ray 10/21/17 1323 Signed Impressions: Service Date/Time: Saturday, October 21, 2017 14:15 - CONCLUSION: 1. Focal elevation of the medial right hemidiaphragm. 2. Otherwise, negative portable chest status post trauma. Enrique Torres MD Cervical Spine CT 10/21/17 1323 Signed Impressions: Service Date/Time: Saturday, October 21, 2017 14:40 - CONCLUSION: 1. Fracture of the left C2 pedicle with questionable extension along the anterolateral left C2 body to the base of the dens. Suspect the lucency extending to the base of the dens is related to old injury or represents a venous channel. This can be better evaluated with MRI examination if clinically indicated. 2. Multilevel degenerative spondylosis of the cervical spine most prominently at C3-4 and C5- 6 with multilevel facet arthropathy. Enrique Torres MD Knee X-Ray 10/21/17 0000 Signed Impressions: Service Date/Time: Saturday, October 21, 2017 14:18 - CONCLUSION: 1. No acute fracture or dislocation. 2. Mild tricompartmental degenerative osteoarthritis. Enrique Torres MD Cervical Spine MRI 10/21/17 0000 Signed Impressions: Service Date/Time: Saturday, October 21, 2017 18:04 - CONCLUSION: 1. Relatively nondisplaced fractures of left C2 pedicle and through the base of the dens. No retropulsion. No cord compression or cord edema. 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 C2 pedicle fracture s/p fall Closed head injury - neuro stable - CT head without any acute intracranial abnormality - CT cervical spine revealed fracture of the left C2 pedicle with questionable extension along the anterolateral left C2 body to the base of the dens as well as diffuse degenerative changes, images reviewed by me Mehdi Bedolla. MRI cervical spine- confirms fracture, no swelling - pain management with bowel regimen - fall risk- baseline uses a walker and scooter for getting around - PT/OT daily - d/w her compliance of wearing the collar Hypertension- some elevated readings - Atenolol 50mg BID and Norvasc increased to 5 mg daily - Vasotec 1.25mg q6hr prn or Hydralazine 10mg q6h prn with SBP>160/95 - continue to monitor BP and adjust treatment accordingly - d/w her to ask for pain meds Osteoarthritis Left knee pain- no complains full range of motion - Xray left knee mild tricompartmental DJD left knee, no acute fracture, - as above, pain management, PT eval/tx Dyslipidemia statin therapy DVT prophylaxis - Lovenox 40mg sq - bilateral SCD/LINH heladioe seen by PT- recommends rehab patient and daughter prefers to go home with home PT- will consult CM + arrange for any DME that she may need seen with CM apparently she was under home hospice Caitlin d/w her regarding home [facility] care services and PT which if she agrees to - will have to take off from Hospice temporarily Syed Yeung MD Oct 23, 2017 13:57
--- NOTE | 2017-10-23 14:32 | HHI.NSPN ---
(Lenin Clark) History Chief Complaint: Some aching to the neck. (Lenin Clark) Interval History 10/21: This is a 81 year old female patient who reports she was getting out of bed when she tripped and fell striking her head. The patient reports that she developed neck pain. She was brought to the emergency room for evaluation, underwent CT scan of the neck which was abnormal and, because of this, neurosurgery consult was placed. The patient reports that she usually uses a scooter to get around. She has not been able to walk independently for the past 3-4 years. She denies any type of injury to any other part of her head or body. She denies any loss of consciousness. 10/22: 81y/o female with history of fall today with resultant neck pain No new complaints today. Wants to go home 10/23: The patient is awake in the chair and visiting with family when seen. The Hospitalist and Case Management are in the room talking with them. She has no complaints but her family does say she has some aching to the neck. She states that she wants to go home vice a alf facility for any therapy. (Lenin Clark) Exam Results 10/21/17 10/21/17 10/22/17 10/22/17 10/23/17 10/23/17 06:00 18:00 06:00 18:00 06:00 18:00 Intake Total 0 ml 1190 ml 360 ml 360 ml Balance 0 ml 1190 ml 360 ml 360 ml Intake Oral 0 ml 1190 ml 360 ml 360 ml # Voids 1 9 4 4 # Bowel Movements 0 0 1 1 Vital Signs Date Time Temp Pulse Resp B/P (MAP) Pulse Ox O2 Delivery O2 Flow Rate FiO2 10/23/17 12:00 98.1 71 20 170/77 (108) 96 10/23/17 08:00 96.9 76 22 178/86 (116) 95 10/23/17 03:59 97.0 69 17 186/82 (116) 96 10/22/17 23:00 98.4 70 18 153/67 (95) 95 10/22/17 19:25 97.5 76 18 151/67 (95) 96 10/22/17 15:29 96.7 67 19 168/70 (102) 97 10/22/17 11:33 97.5 67 19 197/85 (122) 97 10/22/17 07:28 97.1 70 19 188/77 (114) 94 10/22/17 04:10 96.8 71 18 169/84 (112) 96 10/21/17 23:51 97.3 67 18 187/75 (112) 97 10/21/17 20:10 97.5 72 17 192/85 (120) 95 10/21/17 17:19 78 18 197/93 (127) 96 Room Air 10/21/17 13:24 86 18 195/98 (130) 97 Room Air 10/21/17 13:19 84 18 97 (Lenin Clark) Physical Examination GENERAL: Awake & alert sitting in chair talking w/visitors, readily interacts, affect normal, no apparent distress. NECK: In [place] J cervical collar, midline cervical spine NTTP, no JVD, trachea midline. MUSCULOSKELETAL: LOYA w/o difficulty, no clubbing or deformity. Left foot mildly TTP. NEUROLOGICAL: AAOx3. Speech clear & appropriate. Follows simple commands w/o difficulty. Sensation intact to light touch to extremities. Motor strength is 5/5 to all major flexion & extension muscle groups. (Lenin Clark) Medical Decision Making Impression and Plan Impression: 1.) Left C2 pedicle fracture 2.) C2 dens fracture through base The patient is doing well, she is neurologically intact and her pain is controlled. Plan: Primary management per Hospitalist. [place] J cervical collar. Mobilise patient w/assistance as needed. PT/OT eval & tx. (Lenin Clark) Attending Statement The exam, history, and the medical decision-making described in the above note were completed with the assistance of the mid-level provider. I reviewed and agree with the findings presented. I attest that I had a [id number] encounter with the patient on the same day, and personally performed and documented my assessment and findings in the medical record. The patient's CT scan cervical spine and head images have been reviewed and discussed with her. She has a thin, nondisplaced C2 fracture. I have recommended a she had initial conservative management in a cervical collar. She understands that she must avoid any forceful motion of the neck. The risk of further fracture or subluxation with potential for neurologic deficit has been discussed with the patient and she appears to understand. Her extremity sensorimotor function is intact. She does indicate chronic difficulty with ambulation. May benefit from short-term rehabilitation versus alf with therapy. (Beto Pacheco MD) Leinn Clark Oct 23, 2017 14:32 Beto Pacheco MD Oct 23, 2017 20:41
[2017-10-23 16:00] VITALS: BP 157/75; PULSE 71; RESP 21; TEMP 98.4; O2SAT 96
[2017-10-23] MEDS: traMADol/ACETAMINOPHEN 37.5/325 1 TAB PO PRN (16:34)
[2017-10-23] MEDS: ENOXAPARIN SODIUM 40 MG/0.4 ML SYRINGE SQ SCH (16:37)
[2017-10-23] MEDS: PRAVASTATIN SOD 20 MG TAB PO SCH (20:52)
[2017-10-23 20:54] VITALS: BP 136/54; PULSE 74; RESP 18; TEMP 98.6; O2SAT 96
[2017-10-23 23:54] VITALS: BP 158/75; PULSE 75; RESP 18; TEMP 97.9; O2SAT 96
--- NOTE | 2017-10-24 07:47 | HHI.PR ---
Subjective Remarks awake and alert, no complains of neck pain or radiculopathy + BM Objective Vitals Vital Signs Date Time Temp Pulse Resp B/P (MAP) Pulse Ox O2 Delivery O2 Flow Rate FiO2 10/23/17 23:54 97.9 75 18 158/75 (102) 96 10/23/17 20:54 98.6 74 18 136/54 (81) 96 10/23/17 18:59 Room Air 10/23/17 17:51 16 10/23/17 16:00 98.4 71 21 157/75 (102) 96 10/23/17 12:00 98.1 71 20 170/77 (108) 96 10/23/17 08:00 96.9 76 22 178/86 (116) 95 I/O 10/23/17 10/23/17 10/23/17 10/24/17 10/24/17 10/24/17 07:00 15:00 23:00 07:00 15:00 23:00 Intake Total 360 ml 300 ml 240 ml 120 ml Balance 360 ml 300 ml 240 ml 120 ml Intake Oral 360 ml 300 ml 240 ml 120 ml # Voids 4 3 1 2 # Bowel Movements 1 4 0 0 Result Diagram: 10/22/17 0617 10/22/17 0614 Imaging Last Impressions Pelvis X-Ray 10/21/17 1323 Signed Impressions: Service Date/Time: Saturday, October 21, 2017 14:11 - CONCLUSION: 1. No acute fracture or dislocation. 2. 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 Enrique Torres MD Head CT 10/21/17 1323 Signed Impressions: Service Date/Time: Saturday, October 21, 2017 14:40 - CONCLUSION: 1. Senescent changes with moderate small vessel periventricular white matter ischemic demyelination. 2. No acute intracranial abnormality. Enrique Torres MD Chest X-Ray 10/21/17 1323 Signed Impressions: Service Date/Time: Saturday, October 21, 2017 14:15 - CONCLUSION: 1. Focal elevation of the medial right hemidiaphragm. 2. Otherwise, negative portable chest status post trauma. Enrique Torres MD Cervical Spine CT 10/21/17 1323 Signed Impressions: Service Date/Time: Saturday, October 21, 2017 14:40 - CONCLUSION: 1. Fracture of the left C2 pedicle with questionable extension along the anterolateral left C2 body to the base of the dens. Suspect the lucency extending to the base of the dens is related to old injury or represents a venous channel. This can be better evaluated with MRI examination if clinically indicated. 2. Multilevel degenerative spondylosis of the cervical spine most prominently at C3-4 and C5- 6 with multilevel facet arthropathy. Enrique Torres MD Knee X-Ray 10/21/17 0000 Signed Impressions: Service Date/Time: Saturday, October 21, 2017 14:18 - CONCLUSION: 1. No acute fracture or dislocation. 2. Mild tricompartmental degenerative osteoarthritis. Enrique Torres MD Cervical Spine MRI 10/21/17 0000 Signed Impressions: Service Date/Time: Saturday, October 21, 2017 18:04 - CONCLUSION: 1. Relatively nondisplaced fractures of left C2 pedicle and through the base of the dens. No retropulsion. No cord compression or cord edema. 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 C2 pedicle fracture s/p fall Closed head injury- neuro stable - neuro stable - CT head without any acute intracranial abnormality - CT cervical spine revealed fracture of the left C2 pedicle with questionable extension along the anterolateral left C2 body to the base of the dens as well as diffuse degenerative changes, images reviewed by me Mehdi Bedolla. MRI cervical spine- confirms fracture, no swelling - pain management with bowel regimen - fall risk- baseline uses a walker and scooter for getting around - PT/OT daily - d/w her compliance of wearing the collar Hypertension- - Atenolol 50mg BID and Norvasc 5 mg daily - Vasotec 1.25mg q6hr prn or Hydralazine 10mg q6h prn with SBP>160/95 - continue to monitor BP and adjust treatment accordingly - d/w her to ask for pain meds Osteoarthritis Left knee pain- no complains full range of motion - Xray left knee mild tricompartmental DJD left knee, no acute fracture, - as above, pain management, PT eval/tx Dyslipidemia statin therapy DVT prophylaxis - Lovenox 40mg sq - bilateral SCD/LINH gray DC home today- per patient- wants to go home - will ask CM to arrange for home health care services or [facility] hospice care 12.18- seen by PT- recommends rehab patient and daughter prefers to go home with home PT- will consult CM + arrange for any DME that she may need seen with CM apparently she was under home hospice Caitlin d/w her regarding home alth care services and PT which if she agrees to - will have to take off from Hospice temporarily Syed Yeung MD Oct 24, 2017 07:47
[2017-10-24 08:00] VITALS: BP 164/79; PULSE 75; RESP 18; TEMP 98.7; O2SAT 95
[2017-10-24] MEDS ORDERED: traMADol-ACETAMIN 37.5-325 MG PO (08:08)
[2017-10-24] MEDS ORDERED: AMLO5 PO (08:08)
[2017-10-24] MEDS: ATENOLOL 50 MG TAB PO SCH (08:39)
[2017-10-24] MEDS: CALCIUM/VITAMIN D 250 MG/125 U TAB PO SCH (08:39)
[2017-10-24] MEDS: amLODIPine BESYLATE 5 MG TAB PO SCH (08:39)
[2017-10-24] MEDS: DOCUSATE SODIUM 50 MG/SENNA 8.6 MG TAB PO SCH (08:39)
[2017-10-24] MEDS: SODIUM CHLORIDE 0.9% FLUSH 10 ML FLUSH IV FLUSH SCH (08:42)
[2017-10-24] MEDS: traMADol/ACETAMINOPHEN 37.5/325 1 TAB PO PRN (11:54)
[2017-10-24 12:00] VITALS: BP 155/69; PULSE 76; RESP 18; TEMP 99.4; O2SAT 96
== END 2017-10-24 15:38 | disposition hospice, home (50) | DRG 552 ==
LOC: NEPC 12:55 → NEDA 16:11 → N06B 18:36
PROVIDERS: ADMIT Internal Medicine; ATTEND Internal Medicine
DX: S12.121A Other nondisplaced dens fracture, initial encounter for closed fracture (principal); S09.90XA Unspecified injury of head, initial encounter; I10 Essential (primary) hypertension; S12.191A Other nondisplaced fracture of second cervical vertebra, initial encounter for closed fracture; E78.5 Hyperlipidemia, unspecified; G89.29 Other chronic pain; M17.0 Bilateral primary osteoarthritis of knee; W06.XXXA Fall from bed, initial encounter; Z23 Encounter for immunization
CPT/HCPCS: 70450; 71010; 72125; 72141; 72170; 73564; 80048; 80053; 85025; 85610; 85730; 90732; 96374; J1650; J2270; L0150; L0172